=== PATIENT | female | born 1985 | race Caucasian/White ===

== ENCOUNTER 2017-09-19 16:30 | Outpatient (CLI) | payer BC | END 2017-09-19 16:31 | disposition home or self-care (01) | LOC: LAB 16:30 | PROVIDERS: ATTEND Nurse Practitioner Obstetrics & Gynecology | DX: O02.1 Missed abortion (principal) | CPT/HCPCS: 36415; 84702 ==

== ENCOUNTER 2017-09-22 10:21 | Day surgery (SDC) | payer BC ==
--- NOTE | 2017-09-21 13:47 | PREOP HISTORY & PHYSICAL ---
DATE OF SERVICE: 09/22/2017 Physician: Bre Moss DO IDENTIFICATION: A 32-year-old G1, P0, with approximately 7-week 6-day missed , sure LMP of 07/09/2017 with EDC of 04/15/2018. HISTORY OF PRESENT ILLNESS: Patient presents today to [facility] for a preoperative visit. She presented on 09/11/2017 for her initial midwifery visit for her care. Unfortunately, by LMP she measured 9 weeks 1 day. Gregory rump length measured 7 weeks 6 days. We discussed with patient the risks, benefits, alternatives, indications, expectations of a suction, dilatation and curettage, including discussion of the risk of hemorrhage, infection, damage to surrounding organs, which in this case is most likely uterine perforation. Finally, there is a risk of anesthesia. With the surgery there is a risk of endometrial adhesions, but I assured patient I would be gentle enough to remove any products of conception, but at the same time not do any undue scraping of the endometrium. Patient should be able to start conception in the next 2-3 months after ovulation and a satisfactory endometrial lining has formed. However, the most common difficulty in having a miscarriage is the psychological effects. I would recommend patient to continue taking her vitamins including folic acid. After all her questions were answered to her satisfaction, she verbalized her desire to proceed with surgery. Consent forms have been signed. Patient is currently doing well. Denies any vaginal bleeding or abdominal pain. She also denies any nausea, vomiting, fevers, chills, diarrhea, or constipation. PAST MEDICAL HISTORY 1. Controlled unmedicated bipolar disorder. 2. Chronic joint pain secondary to injury as a child. 3. Right elbow surgery x5. 4. Right knee arthroscopy. 5. [place] teeth. ALLERGIES: NO KNOWN DRUG ALLERGIES. MEDICATIONS: vitamins. SOCIAL HISTORY: She denies any tobacco, alcohol, or illicit drug use. 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 Her is Hany De Santiago, the sweatband separator at [employer] Her preferred pharmacy of choice is [facility] in [place], [place]. Her primary care physician is Cora Dumont MD. PAST OBSTETRICAL HISTORY: Current, this is a planned . PAST GYNECOLOGIC HISTORY: She states all Pap smears have been within normal limits and denies any sexually transmitted diseases. Menses occur every 5 weeks , and she bleeds for 5 days. She was on the control pills for the last 6 years. She does admit to having dysmenorrhea that is rated 5/10-7/10 pain scale. The pain is not bad enough to not go to work, but it is significant enough. FAMILY HISTORY: Paternal grandmother was diagnosed with breast cancer in her 70s and in her 80s. REVIEW OF SYSTEMS: Negative unless otherwise stated. OBJECTIVE VITAL SIGNS: Height is 67 inches, weight is 256 pounds, BMI is 40.1. Blood pressure 132/78. GENERAL: Patient is a well-developed, well-nourished, female, in no apparent distress. She is alert and oriented x3. She is very intelligent and pleasant. HEENT: Within normal limits. She does wear glasses, and her hair is dyed green. CARDIOVASCULAR: Rate is regular, no murmurs or rubs. PULMONARY: Lungs are clear to auscultation bilaterally. ABDOMEN: Soft, nontender. PELVIC: Transabdominal bedside ultrasound reveals a uterus measuring 8.89 x 5.47 cm. Gestational sac measures 3.62 x 3.34 cm. Yolk sac very faint. No pole seen. ASSESSMENT 1. A 32-year-old G1, P0, with a 7-week 6-day missed . 2. Desires suction, dilatation and curettage for completion of the . PLAN 1. We w ill proceed to a scheduled suction, dilatation and curettage tomorrow, 09/22/2017, at 11 o'clock. 2. We will obtain ABO and give RhoGAM as indicated. 3. Counseled patient to take ibuprofen after surgery. A prescription has been sent to [facility] for her convenience and a handwritten prescription for Vicodin has also been given to her. 4. Patient to see me at [facility] in 2 weeks for routine postop visit. 5. Patient to call should she have any worsening fevers, chills, abdominal pain or vaginal bleeding. cc: Cora Dumont MD TD: 09/21/2017 13:30 [facility]
[~2017-09-22 10:21] MED LIST: ceFAZolin 2 GM/50 ML 2 GM/50 ML BAG IV ONE
[2017-09-22] MEDS ORDERED: LACTATED RINGERS 1,000 ML IV ONE (10:34)
[2017-09-22] MEDS ORDERED: SCOPOLAMINE PATCH TOP ONE (11:57)
[2017-09-22] MEDS ORDERED: RHO(D) IMMUNE GLOBULIN 300 MCG SYRINGE IM ONE (12:06)
[2017-09-22] MEDS ORDERED: MIDAZOLAM 2 MG/2 ML VIAL IVP ONE (12:50)
[2017-09-22] MEDS ORDERED: fentaNYL 100 MCG/2 ML VIAL IVP ONE (12:50)
[2017-09-22] MEDS ORDERED: DEXAMETHASONE 4 MG/ML VIAL IVP ONE (12:50)
[2017-09-22] MEDS ORDERED: PROPOFOL 200 MG/20 ML VIAL IVP ONE (12:50)
[2017-09-22] MEDS ORDERED: KETOROLAC 30 MG/ML VIAL ONE (12:55)
[2017-09-22] MEDS ORDERED: ONDANSETRON 4 MG/2 ML VIAL ONE (12:55)
--- NOTE | 2017-09-22 12:57 | OPERATIVE REPORT ---
Operative Report - Other Other Information/Narrative: Date of Operation: 09/22/2017 Surgeon: Bre Moss DO FACOG Turner Splitter Machine Operator: Johnna Singh CRNA Anesthesia: GET Pre-op Dx: 1. 32 yo with a 7w6d Missed AB 2. O negative Post-op Dx: 1. 32 yo with a 7w6d Missed AB 2. O negative Procedure: 1. Suction dilation and curettage Findings: POC Specimens: Uterine curettings Drains: None EBL: <10 cc Complications: None Dictation: [id number]
[2017-09-22 13:39] VITALS: BP 128/78
--- NOTE | 2017-09-22 13:58 | OPERATIVE REPORT ---
DATE OF OPERATION: 09/22/2017 PREOPERATIVE DIAGNOSES 1. A 32-year-old G1, P0, with a 7-week 6-day missed . 2. O negative. POSTOPERATIVE DIAGNOSES 1. A 32-year-old G1, P0, with a 7-week 6-day missed . 2. O negative. PROCEDURES PERFORMED 1. Suction dilatation and curettage. 2. Administration of Rhophylac. SURGEON: Bre Moss DO, FACOG MATERIAL WORKER: Maddy Singh CRNA ANESTHESIA: General endotracheal tube. FINDINGS: Products of conception. SPECIMENS: Uterine curettings. DRAINS: None. ESTIMATED BLOOD LOSS: Less than 10 mL COMPLICATIONS: None. BRIEF HISTORY: The patient is a patient of [facility] who was unfortunately found to have a nonviable . Tete was diagnosed with a missed at about 7 weeks 6 days. We discussed with the patient the risks, benefits, alternatives, indications, expectations of a suction dilatation and curettage. Included in the risks were anesthesia, hemorrhage, infection and uterine perforation. After her questions were answered to her satisfaction, she verbalized her desire to proceed with surgery. Consent forms have been signed. OPERATION IN DETAIL: The patient was identified, consented, and taken to the operating room where IV access was already in place. She was then given sequential compression devices, which were placed on the lower extremities and turned on. She was given 2 grams of Ancef IV for postoperative endometritis prophylaxis. She was then given satisfactory general endotracheal tube anesthesia per Maddy Singh. She was then prepped and draped in normal sterile fashion inthe lithotomy position using Yellofin stirrups. A time-out was then performed, which correctly identified the patient , site of the procedure and the procedures themselves. A single-tooth tenaculum was placed on the anterior lip of the cervix and the cervix was then serially dilated to a 7-Khmer. With a curved rigid suction curette, the endometrium was curetted. Sharp curettage was then followed until a satisfactory endometrial cry was felt throughout the endometrium. At this point in time, the procedure had been completed. All instruments were removed out of the vagina, and the cervix and the vagina were found to be hemostatically stable. The patient was taken to the recovery room in stable condition. All sponge and laps were correctly counted as per nurse report x2. She will be discharged home later today after postoperative criteria have been met. She did get a dose of Rhophylac, since she is O negative. She is to follow up with myself at [facility] in 2 weeks for routine postop visit. I did discuss with her , Hany, how surgery went and that she was doing well. Again , she should call should she have any worsening fevers, chills, abdominal pain or vaginal bleeding. cc: Cora Dumont MD TD: 09/22/2017 13:28 MTDD
== END 2017-09-22 10:22 | disposition home or self-care (01) ==
LOC: SDS 10:21
PROVIDERS: ATTEND Obstetrics & Gynecology
PROC: 10D17ZZ Extraction of Products of Conception, Retained, Via Natural or Artificial Opening (ICD-10-PCS; principal; 2017-09-22 12:15)
DX: O02.1 Missed abortion (principal); Z67.41 Type O blood, Rh negative
CPT/HCPCS: 59820; 86900; 86901; J0690; J3490; J7120; 88305